=== PATIENT | male | born 1990 | race Caucasian/White ===

== ENCOUNTER 2018-04-25 10:33 | Inpatient (IN) ==
[2018-04-25] MEDS ORDERED: Naloxone 0.4 MG/ML INJ IVP PRN (14:25)
--- NOTE | 2018-04-25 14:25 | Internal Med History&Physical ---
Date of Encounter: 04/25/18 Time of Encounter: 15:00 Internal Medicine - H&P: HPI History of present illness: Mr. Farris is a 27 year old male with no significant past medical history presented as a transfer from [place]. Patient initially presented for two day history of sharp intermittent epigastric abdominal pain. Pain high as 7/10 with some nausea. He also had difficulty tolerating foods. Yesterday vomited when trying to eat. CT abdomen/pelvis at [place] showed SBO. Patient had NG tube and transferred here for further workup. Patient currently states pain is 2/10 but feels Dilauded received on transfer is wearing off. He states he has had + Flatus today with no BM. Denies fevers/chills. Past Med Surg Social Fam HX - Past Medical History Medical history: other Additional medical history: urethra- 2002 to enlarge Psychiatric history: no psych history - Past Surgical History Additional surgical history: right knee surgery - Social History Smoking Status: Never smoker Smokeless Tobacco Status: No Alcohol use: heavy Drug use: marijuana - Family History Father Age: 53 Living Status: Still Living Hx Family Cardiac Disorders: No Hx Family Respiratory Disorders: No Hx Family Cancer: No Internal Medicine - H&P: Meds No Known Home Drugs 04/25/18 [History] Allergy/AdvReac Type Severity Reaction Status Date / Time No Known Allergies Allergy Verified 04/25/18 07:53 All Systems PM: A 10-system review of systems was performed and is negative for pertinent findings except as documented above in the HPI. - Constitutional Vitals: Temp Pulse Resp BP Pulse Ox 98.6 F 94 15 153/83 94 04/25/18 12:43 04/25/18 12:43 04/25/18 12:43 04/25/18 12:43 04/25/18 12:43 General appearance: Present: A&O X 3, no acute distress Exam: . - Head Head exam: Present: atraumatic, normocephalic - Eye Eye exam: Present: PERRL, conjuntiva pink, sclera anicteric Pupils: Present: PERRL - Neck Neck exam general surgery: Present: supple, trachea midline. Absent: lymphadenopathy - Respiratory Respiratory exam: Present: CTAB. Absent: accessory muscle use, rales, rhonchi, wheezes - Cardiovascular Cardiovascular exam: Present: RRR, +S1, +S2. Absent: diastolic murmur, gallop, rubs, systolic murmur - GI/Abdominal GI/Abdominal exam: Present: normal bowel sounds, soft, tenderness, no peritoneal signs. Absent: distended, rebound, rigid - Extremities Exam Extremities exam: Present: warm, radial pulses palpable and symmetrical. Absent: calf tenderness, cyanotic, pedal edema - Neurological Exam Neurological exam: Present: CN II-XII intact, oriented X3, no focal deficits. Absent: pronater drift, facial droop, speech deficit - Skin Skin exam: Present: dry, intact - Assessment and plan (1) Small bowel obstruction Current Visit: Yes Status: Acute Assessment and plan: NPO NG tube in place Oxy sL and IV Fentanyl for breakthrough pain. Patient describes having + flatus, no BM Give IV fluids, received 1 L NS prior to transfer Surgery consulted, recommendations appreciated (2) DVT prophylaxis Current Visit: Yes Status: Acute Assessment and plan: Lovenox SQ - Time Spent With Patient Total time spent is greater than 50% in coordination of care (as documented) at patient's floor/unit and/or counseling patient:
[2018-04-25] MEDS ORDERED: OXYCODONE Oral CONC 10 MG/0.5 ML ORAL.SYG SL PRN (14:27)
[2018-04-25] MEDS: Ondansetron 4 MG/2 ML VIAL IVP PRN (15:39)
[2018-04-25] MEDS: OXYCODONE Oral CONC 10 MG/0.5 ML ORAL.SYG SL PRN ×2 (15:39→21:34)
[2018-04-25] MEDS: 0.9 % Sodium Chloride 1,000 ML IVC SCH (15:40)
--- NOTE | 2018-04-25 15:45 | General Surgery Consult Note ---
<Zoie Oliver - Last Filed: 04/25/18 15:43> Date of Encounter: 04/25/18 Time of Encounter: 15:43 Assessment and Plan (1) Abdominal pain Current Visit: Yes Status: Acute CT of the abdomen and pelvis notes low contagious significantly dilated loops of bowel primarily involving the jejunum measuring up to 5 cm, mild to distal ileal small bowel loops are normal caliber. Transition appears in the mid abdomen. Mild amount of free fluid in the pelvis and mild Per--hepatic ascites, likely reactive. He has never had any abdominal surgeries. Low low suspicion of small bowel obstruction given that he is passing gas at this time. We will continue to follow along with you, however no acute surgical intervention as indicated at this time Continue NG tube low intermittent wall suction may have ice chips for comfort Chloraseptic spray for sore throat we will check a KUB now serial abdominal exams repeat a.m. labs Qualifiers: Abdominal location: generalized Qualified Code(s): R10.84 - Generalized abdominal pain History of Present Illness Consult date: 04/25/18 (Dr. Hamilton) Reason for consult: abdominal pain Requesting physician: Wilton Calvillo II History of present illness: There is a 27-year-old male who is in good health who presented on 04/25/2018 following a two-day course of abdominal discomfort and intractable vomiting. He reports a history of difficulty burping "I can't really burp so if I feel gassy are fully just make myself throw up." He states that he began having this nausea and fullness in his belly he attempted to induce vomiting but was unsuccessful. He woke up the next day the pain was still in his abdomen but he went to work and then as the day progressed his pain got significantly worse and he began having severe vomiting. He states he had thrown up at least 10 times. He reports feeling fevered and chilled but did not check his temperature, denies headache, dizziness, chest pain, shortness of breath, urinary signs or symptoms, constipation or diarrhea. He states he typically has a daily bowel movements and is last bowel movement was yesterday. He states he had not passed any flatus for approximately 30 hours but just prior to my entry into the room he began passing "a lot of gas." He endorses an appetite and like a Mountain Dew. An NG tube was [facility] at [facility]. The patient states he did not necessarily feel any improvement in his abdomen after the tube was placed but did feel somewhat better after pain medication was given. He reports his maternal grandmother has a history of ulcerative colitis/Crohn's. He has had surgery on his left knee. He denies cigarettes, alcohol, or street drugs. He works as a concrete carpenter. Past Med Surg Social Fam HX - Past Medical History Source: patient Medical history: other Additional medical history: urethra- 2002 to enlarge Psychiatric history: no psych history - Past Surgical History Surgical History: arthroscopy Additional surgical history: right knee surgery - Social History Smoking Status: Never smoker Smokeless Tobacco Status: No Alcohol use: heavy Drug use: marijuana - Family History Father Age: 53 Living Status: Still Living Hx Family Cardiac Disorders: No Hx Family Respiratory Disorders: No Hx Family Cancer: No Medications and Allergies RX: No Known Home Drugs 04/25/18 [History] Allergy/AdvReac Type Severity Reaction Status Date / Time No Known Allergies Allergy Verified 04/25/18 07:53 Review of Systems All systems PM: reviewed and no additional remarkable complaints except as stated All systems PM: The remainder of the systems were reviewed and are negative General Surgery Exam Initial Vital Signs Temp Pulse Resp BP Pulse Ox 98.6 F 94 15 153/83 94 04/25/18 12:43 04/25/18 12:43 04/25/18 12:43 04/25/18 12:43 04/25/18 12:43 VITAL SIGNS: Reviewed. See [facility] GENERAL: In no apparent distress. HEENT: Normocephalic, atraumatic, pupils are equal and reactive, extraocular motions intact, oropharynx is pink and moist, there is no neck adenopathy or JVD noted. CHEST/RESPIRATORY: The thorax is free from signs of trauma. Lung sounds: clear to auscultation, normal respiratory effort CARDIAC: Regular rate and rhythm. Normal S1 and S2, without murmurs, gallops, or rubs. VASCULAR: No Edema. 2+ peripheral pulses. ABDOMEN: soft, nontender, active bowel sounds, NG tube is secured. MUSCULOSKELETAL: Good range of motion of all major joints. Extremities without clubbing, cyanosis or edema. NEUROLOGIC EXAM: Alert and oriented x 3. Speech normal. Follows commands. PSYCHIATRIC: Mood normal. SKIN: No rash or lesions. Exam Initial Vital Signs Temp Pulse Resp BP Pulse Ox 98.6 F 94 15 153/83 94 04/25/18 12:43 04/25/18 12:43 04/25/18 12:43 04/25/18 12:43 04/25/18 12:43 Results - Labs All other labs normal. - Imaging CT scan - abdomen: report reviewed CT scan - pelvis: report reviewed Consult Discharge Plan - Plan Referrals: NONE,PCP [Primary Care Provider] - <Jackson Hamilton E - Last Filed: 04/25/18 16:00> Date of Encounter: 04/25/18 Assessment and Plan (1) Abdominal pain Current Visit: Yes Status: Acute Qualifiers: Abdominal location: generalized Qualified Code(s): R10.84 - Generalized abdominal pain Review of Systems All systems PM: The remainder of the systems were reviewed and are negative General Surgery Exam Initial Vital Signs Temp Pulse Resp BP Pulse Ox 98.6 F 94 15 153/83 94 04/25/18 12:43 04/25/18 12:43 04/25/18 12:43 04/25/18 12:43 04/25/18 12:43 Exam Initial Vital Signs Temp Pulse Resp BP Pulse Ox 98.6 F 94 15 153/83 94 04/25/18 12:43 04/25/18 12:43 04/25/18 12:43 04/25/18 12:43 04/25/18 12:43 Results - Labs All other labs normal. - Attending Attestation Agree with the above assessment. I do not appreciate any transition point of the SB.Will follow his exam.
[2018-04-25] MEDS ORDERED: Chloraseptic Spray 177 ML BOTTLE MM PRN (15:52)
[2018-04-25] MEDS ORDERED: 0.9 % Sodium Chloride 1,000 ML IVC ONE (15:56)
[2018-04-25] MEDS: Pantoprazole 40 MG VIAL IVP SCH (17:20)
[2018-04-26] MEDS: *HR* Enoxaparin 40 MG/0.4 ML SYRINGE SQ SCH (04:45)
[2018-04-26] MEDS: 0.9 % Sodium Chloride 1,000 ML IVC SCH (04:47)
[2018-04-26] MEDS: Ondansetron 4 MG/2 ML VIAL IVP PRN ×3 (04:50→18:34)
[2018-04-26] MEDS: OXYCODONE Oral CONC 10 MG/0.5 ML ORAL.SYG SL PRN ×2 (04:50→10:16)
[2018-04-26] MEDS ORDERED: *HR* Dextrose 50 % in Water (Syg) 50 ML SYRINGE IVP PRN (05:52)
[2018-04-26] MEDS ORDERED: Dextrose Gel 15 GM/37.5 ML TUBE PO ONE (05:52)
[2018-04-26 06:52] LABS: Basophils % 0.4 %; Eosinophils # 0.1 K/mcL (0.0-0.6); Eosinophils % 0.5 %; Hematocrit 43.1 % (37.5-50.1); Hemoglobin 14.5 g/dL (12.9-16.9); Immature Granulocytes % 0.3 % (0-4); Lymphocytes # 2.6 K/mcL (0.6-4.6); Lymphocytes % 25.6 %; Mean Corpuscular HGB Conc 33.6 g/dL (31.6-35.5); Mean Corpuscular Hemoglobin 32.2 pg (28.0-33.3); Mean Corpuscular Volume 95.8 fL (83.0-100.0); Mean Platelet Volume 9.8 fL (9.4-12.4); Monocytes # 0.8 K/mcL (0.0-1.3); Monocytes % 8.2 %; Neutrophils # 6.5 K/mcL (1.6-8.9); Platelet Count 257 K/mcL (140-400); Red Cell Distribution Width 12.3 % (11.5-14.5)
[2018-04-26 06:58] LABS: BUN/Creatinine Ratio 13 (6-26); Blood Urea Nitrogen 12 mg/dL (6-20); Calcium 8.9 mg/dL (8.6-10.3); Carbon Dioxide 27 mEq/L (23-29); Chloride 106 mEq/L (98-107); Glucose 87 mg/dL (70-105); Osmolality,Calculated 289 (280-300); Potassium 3.7 mEq/L (3.5-5.1); Sodium 140 mEq/L (136-145); eGFR For Non-African Americans > 60 (> 60)
[2018-04-26] MEDS: Pantoprazole 40 MG VIAL IVP SCH (08:15)
[2018-04-26] MEDS ORDERED: *HR* LORazepam 2 MG/ML VIAL IVP ONE (12:18)
--- NOTE | 2018-04-26 18:16 | General Surgery Progress Note ---
Date of Encounter: 04/26/18 Time of Encounter: 08:02 - Assessment and Plan (1) Abdominal pain Current Visit: Yes Status: Acute Likely ileus secondary to gastroenteritis. Patient and his girlfriend were both sick just days prior to the onset of abdominal pain and vomtiing. Less likely SBO d/t patient having no history of abdominal surgery, passing gas, bowel sounds present, no mass visualized on CT. Patient states that pain and bloating have improved since getting NGT Pain is now localized to the epigastric region Admits to flatus, but no bowel movements CT 04/25 - dilated loops of bowel primarily involving the jejunum, approx up to 5cm. Transition in mid abdomen. No acute surgical intervention indicated at this time. Will continue to follow. Continue discomfort and supportive care Continue NPO with ice chips Continue GI/DVT prophylaxis Continue NGT until patient has a BM, if no improvement will order SBFT Qualifiers: Abdominal location: epigastric Qualified Code(s): R10.13 - Epigastric pain (2) DVT prophylaxis Current Visit: Yes Status: Acute Subjective Patient reports: feels better, flatus, no bowel movement, afebrile Objective Vital Signs - Last 8 Hours Temp Pulse Resp BP Pulse Ox 04/26/18 14:54 97.7 F 75 16 126/73 96 04/26/18 11:34 97.6 F 73 16 121/72 96 Intake and Output 04/26/18 04/26/18 04/26/18 07:59 15:59 23:59 Intake Total 1000 / 1000 0 / 0 0 / 0 Output Total 1650 / 1650 1225 / 1225 Balance -650 / -650 -1225 / -1225 0 / 0 Intake: IV Fluids 1000 / 1000 0.9 % Sodium Chloride 1,000 ML 1000 / 1000 @ 150 mls/hr IVC .[id number] GARETH Rx #:[id number] Oral 0 / 0 0 / 0 Output: Urine 250 / 250 0 / 0 Gastric Drainage 1400 / 1400 1225 / 1225 Right Nare 1100 / 1100 Other: Meal Breakfast NPO DINNER NPO Percent of Meal Consumed 0% 0% Weight 73.7 kg Blood Glucose* 72 73 84 Patient Weight 04/26/18 23:59 Weight 73.7 kg - General physical appearance well developed, well nourished, no distress, moderate pain - Eyes normal ocular movement - ENT normal mucosa, atraumatic, normocephalic - Neck Neck exam: no masses, trachea midline - Respiratory normal expansion, normal respiratory effort, clear to auscultation - Cardiovascular Cardiovascular exam: Present: RRR, no murmurs/rubs/gallops - Abdomen Abdomen: Present: bowel sounds present, soft. Absent: distended, guarding, rebound Abdominal Tenderness: epigastic Hernia: none - Integumentary no rash, no growths - Psychiatric oriented to time, oriented to person, oriented to place, speech is normal - Labs 04/26/18 05:14 04/26/18 05:14 Diabetes panel 04/26/18 Range/Units 05:14 Sodium 140 (136-145) mEq/L Potassium 3.7 (3.5-5.1) mEq/L Chloride 106 (98-107) mEq/L Carbon Dioxide 27 (23-29) mEq/L BUN 12 (6-20) mg/dL Creatinine 0.96 (0.70-1.30) mg/dL Glucose 87 (70-105) mg/dL Calcium 8.9 (8.6-10.3) mg/dL Calcium panel 04/26/18 Range/Units 05:14 Calcium 8.9 (8.6-10.3) mg/dL Pituitary panel 04/26/18 Range/Units 05:14 Sodium 140 (136-145) mEq/L Potassium 3.7 (3.5-5.1) mEq/L Chloride 106 (98-107) mEq/L Carbon Dioxide 27 (23-29) mEq/L BUN 12 (6-20) mg/dL Creatinine 0.96 (0.70-1.30) mg/dL Glucose 87 (70-105) mg/dL Calcium 8.9 (8.6-10.3) mg/dL Adrenal panel 04/26/18 Range/Units 05:14 Sodium 140 (136-145) mEq/L Potassium 3.7 (3.5-5.1) mEq/L Chloride 106 (98-107) mEq/L Carbon Dioxide 27 (23-29) mEq/L BUN 12 (6-20) mg/dL Creatinine 0.96 (0.70-1.30) mg/dL Glucose 87 (70-105) mg/dL Calcium 8.9 (8.6-10.3) mg/dL Consult Discharge Plan - Plan Referrals: NONE,PCP [Primary Care Provider] -
--- NOTE | 2018-04-26 21:15 | Internal Med Progress Note ---
Hospitalist Progress Note - Encounter Date of Encounter: 04/26/18 Time of Encounter: 19:00 - Subjective Interval History: SUBJECTIVE: The patient feels better. His abdominal distention subsided. Denies nausea and vomiting; he does have NG tube inserted. He does pass gas at times. He has not had any bowel movements since admitting him to the hospital. OBJECTIVE: Skin: Free of rash and discoloration. ENMT: Oral/pharyngeal mucosa is normal in appearance. Eyes: Sclera is white. There is no discharge from eyes. Respiratory: Normal breath sounds; no crackles or wheezes. CV: Heart is regular; no gallop or murmur. GI: There is mild tenderness in epigastrium. There is no palpable mass or visceromegaly. Neuro: There is no focal deficits. ADDITIONAL DATA: CBC is normal (WBC of 10.1 thousand). BMP shows potassium of 3.7 and creatinine of 0.96. KUB is ordered for tomorrow. ASSESSMENT AND PLAN: Most likely ileus rather than small bowel obstruction. See notes from general surgery. Before developing abdominal distention the patient was fighting about of acute gastroenteritis. We are waiting for him to move his bowels. To continue NG tube and ice chips. KUB in the morning. DISPOSITION: He has a good chance to be discharged sometime tomorrow p.m. - Exam Vitals: Temp Pulse Resp BP Pulse Ox 98.8 F 67 15 113/66 94 04/26/18 18:20 04/26/18 18:20 04/26/18 18:20 04/26/18 18:20 04/26/18 18:20 Exam: xx - Assessment and Plan (1) Ileus Current Visit: Yes Status: Acute (2) Acute gastroenteritis Current Visit: Yes Status: Acute - Time Spent with Patient Total time spent is greater than 50% in coordination of care (as documented) at patient's floor/unit and/or counseling patient: 25 - 35 minutes Plan of Care Discussed with: patient Internal Medicine: Result - Labs CBC & Chem 7: 04/26/18 05:14 04/26/18 05:14 Labs: Short CBC 04/26/18 Range/Units 05:14 WBC 10.1 (4.3-11.1) K/mcL Hgb 14.5 D (12.9-16.9) g/dL Hct 43.1 (37.5-50.1) % Plt Count 257 (140-400) K/mcL Neutrophils # 6.5 (1.6-8.9) K/mcL BMP 04/26/18 05:14 Sodium 140 Potassium 3.7 Chloride 106 Carbon Dioxide 27 BUN 12 Creatinine 0.96 Glucose 87 Calcium 8.9 Consult Discharge Plan - Plan Referrals: NONE,PCP [Primary Care Provider] -
[2018-04-27 04:31] LABS: Basophils % 0.3 %; Eosinophils # 0.1 K/mcL (0.0-0.6); Hematocrit 43.2 % (37.5-50.1); Hemoglobin 14.6 g/dL (12.9-16.9); Immature Granulocytes % 0.2 % (0-4); Lymphocytes # 2.6 K/mcL (0.6-4.6); Lymphocytes % 28.4 %; Mean Corpuscular HGB Conc 33.8 g/dL (31.6-35.5); Mean Corpuscular Hemoglobin 32.2 pg (28.0-33.3); Mean Corpuscular Volume 95.2 fL (83.0-100.0); Mean Platelet Volume 9.4 fL (9.4-12.4); Monocytes # 0.9 K/mcL (0.0-1.3); Monocytes % 9.1 %; Neutrophils # 5.7 K/mcL (1.6-8.9); Platelet Count 238 K/mcL (140-400); Red Blood Count 4.54 M/mcL (4.19-5.50); Red Cell Distribution Width 11.9 % (11.5-14.5)
[2018-04-27 04:48] LABS: BUN/Creatinine Ratio 10 (6-26); Blood Urea Nitrogen 9 mg/dL (6-20); Calcium 9.3 mg/dL (8.6-10.3); Carbon Dioxide 29 mEq/L (23-29); Chloride 104 mEq/L (98-107); Glucose 97 mg/dL (70-105); Osmolality,Calculated 287 (280-300); Potassium 3.9 mEq/L (3.5-5.1); Sodium 139 mEq/L (136-145); eGFR For Non-African Americans > 60 (> 60)
[2018-04-27] MEDS: *HR* Enoxaparin 40 MG/0.4 ML SYRINGE SQ SCH (05:04)
[2018-04-27] MEDS: Ondansetron 4 MG/2 ML VIAL IVP PRN (05:09)
[2018-04-27 07:26] VITALS: BP 117/70
[2018-04-27] MEDS: Pantoprazole 40 MG VIAL IVP SCH (09:10)
--- NOTE | 2018-04-27 10:30 | Discharge Summary ---
Date of Encounter: 04/27/18 Time of Encounter: 10:28 - Discharge Diagnosis (1) Ileus Priority: Primary Status: Acute (2) Acute gastroenteritis Priority: Primary Status: Acute Hospital course: HOSPITAL COURSE: The patient is a 27-year-old male. He is a transfer from [place]. It was about 5 days ago when he started having symptoms of acute gastroenteritis. His had similar symptoms. After 2 days he felt like the disease was nearly gone. Then he developed epigastric pain with some nausea and progressing abdominal distention. He was found to have possible small bowel obstruction. NG tube was inserted. He was kept nothing by mouth for 2 days. Then, all his symptoms subsided. NG tube was removed. The patient ate breakfast on the day of discharge. CONDITION AT DISCHARGE: He feels good. Abdominal pain subsided. Denies nausea and vomiting. Denies chest pain and difficulty breathing. Skin: Free of rash and discoloration. Respiratory: Normal breath sounds with no crackles and wheezes bilaterally. CV: Heart is regular with no gallop or murmur. GI: Abdomen is flat and soft with no palpable mass or visceromegaly. Neuro exam: There is no focal deficits. Normal speech, swallowing and gait. SEE DISCHARGE ORDERS/MEDICATIONS.. Retrospectively, we feel that this patient experienced ileus triggered by acute gastroenteritis. See notes from general surgery. Discharge discussed with: patient, family - Time Spent with Patient Total time spent providing and/or coordinating discharge services: Greater than 30 minutes (35 minutes..) - Discharge Medications Home Medications: No Known Home Drugs 04/25/18 [History] Allergies/Adverse Reactions: Allergy/AdvReac Type Severity Reaction Status Date / Time No Known Allergies Allergy Verified 04/25/18 07:53 Date of admission: 04/26/18 08:52 Primary care physician: PCP NONE Discharging clinician: Fernandez Hebert Anticipated date of discharge: 04/27/18 - Constitutional Vitals: Temp Pulse Resp BP Pulse Ox 98.4 F 57 15 117/70 97 04/27/18 07:21 04/27/18 07:21 04/27/18 07:21 04/27/18 07:21 04/27/18 08:04 General appearance: Present: A&O X 3, no acute distress, answers questions appropriately Exam: xx - Patient Status Disposition: Home, Self-Care Condition: Good Functional capacity at discharge: independent ambulation Overall status at discharge: patient is back to baseline - Discharge Instructions Instructions: Gastroenteritis (DC), Ileus (DC) Follow Up With: NONE,PCP [Primary Care Provider] - (Berta "find physician" card given to patient to call after the weekend and instructed to follow up) Additional Instructions: Follow-up appointments: If there is not an appointment listed below, please call your physician and schedule a follow-up appointment. If you have congestive heart failure and your symptoms return, make an appointment with your physician. Medication List: Carry an up to date list of medications you are taking at all time. We have given you an updated medication list including any new medications that you have been prescribed. Please provide that list to your primary provider Symptoms: If your condition changes or you experience any of the following symptoms, notify your physician immediately: Unusual or worsening pain, fever, persistent nausea and vomiting, bleeding, increase in swelling (especially in your legs), sudden weight gain, extreme dizziness, chest pain, increased drainage or redness from a wound or incision. Go to the emergency department if you experience a problem with breathing. Weights: If you have a history of swelling or shortness of breath, weigh yourself daily and notify your physician if you have a weight gain of two or more pounds in one day or 5 or more pounds in a week. If you experience any of the warning signs for stroke: Sudden numbness or weakness of the face, arm or leg; especially on one side of the body, sudden confusion, trouble speaking or understanding, sudden trouble seeing in one or both eyes, sudden trouble walking, dizziness, loss of balance or coordination, sudden sever headache with no cause; Call 911 or go to the emergency room. Stroke is a medical emergency. Some risk factors for stroke: Age, cigarette smoking, diabetes, excessive alcohol consumption, family history, high blood pressure, overweight, physical inactivity, prior stroke, heart attack, diagnosis of carotid artery stenosis or other artery disease. If you smoke, STOP: Smoking or tobacco use significantly increases your risk of heart and lung disease. Your chance of disease greatly increases if you continue to smoke. For more information, call the [place] tobacco quit line for smoking cessation QUIT-NOW ( ) - Diet and Activity Activity: resume usual activities as tolerated Diet: regular diet - VTE Reasons for not Prescribing Prophylaxis: Treatment not Indicated - Low risk for VTE Deep Vein Thrombosis/Pulmonary Embolism Present on Admission: No
--- NOTE | 2018-04-27 11:44 | General Surgery Progress Note ---
Date of Encounter: 04/27/18 Time of Encounter: 09:53 - Assessment and Plan (1) Abdominal pain Status: Acute Likely ileus secondary to gastroenteritis. Less likely SBO d/t patient having no history of abdominal surgery, passing gas, bowel sounds present, no mass visualized on CT. NGT removed yesterday evening. Patient has had 3 bowel movements, is passing gas, and denies nausea or vomiting. CT 04/25 - dilated loops of bowel primarily involving the jejunum, approx up to 5cm. Transition in mid abdomen. No acute surgical intervention indicated at this time. Surgery will sign off. Continue discomfort and supportive care Advanced to full liquid diet Continue GI/DVT prophylaxis Qualifiers: Abdominal location: epigastric Qualified Code(s): R10.13 - Epigastric pain Subjective Patient reports: no new complaints, feels better, flatus, bowel movement, afebrile Objective Vital Signs - Last 8 Hours Temp Pulse Resp BP Pulse Ox 04/27/18 08:04 97 04/27/18 07:21 98.4 F 57 15 117/70 97 04/27/18 05:18 98.5 F 59 15 118/70 96 Intake and Output 04/26/18 04/27/18 04/27/18 23:59 07:59 15:59 Intake Total 0 / 0 0 / 0 Output Total 250 / 250 0 / 0 Balance -250 / -250 0 / 0 Intake: Oral 0 / 0 0 / 0 Output: Urine 250 / 250 0 / 0 Other: Meal DINNER NPO Percent of Meal Consumed 0% Stool Size Moderate Moderate Stool Consistency liquid soft formed Stool Characteristics Mucoid Stool Color Yellow # Voids 1 # Bowel Movements 3 Weight 73.9 kg Blood Glucose* 101 124 Patient Weight 04/27/18 23:59 Weight 73.9 kg - General physical appearance well developed, well nourished, no distress - Respiratory normal expansion, normal respiratory effort - Cardiovascular Cardiovascular exam: Present: RRR, no murmurs/rubs/gallops - Abdomen Abdomen: Present: bowel sounds present, soft, non tender. Absent: distended, guarding, rebound - Integumentary no rash - Psychiatric speech is normal - Labs 04/27/18 03:39 04/27/18 03:39 Diabetes panel 04/27/18 Range/Units 03:39 Sodium 139 (136-145) mEq/L Potassium 3.9 (3.5-5.1) mEq/L Chloride 104 (98-107) mEq/L Carbon Dioxide 29 (23-29) mEq/L BUN 9 (6-20) mg/dL Creatinine 0.94 (0.70-1.30) mg/dL Glucose 97 (70-105) mg/dL Calcium 9.3 (8.6-10.3) mg/dL Calcium panel 04/27/18 Range/Units 03:39 Calcium 9.3 (8.6-10.3) mg/dL Pituitary panel 04/27/18 Range/Units 03:39 Sodium 139 (136-145) mEq/L Potassium 3.9 (3.5-5.1) mEq/L Chloride 104 (98-107) mEq/L Carbon Dioxide 29 (23-29) mEq/L BUN 9 (6-20) mg/dL Creatinine 0.94 (0.70-1.30) mg/dL Glucose 97 (70-105) mg/dL Calcium 9.3 (8.6-10.3) mg/dL Adrenal panel 04/27/18 Range/Units 03:39 Sodium 139 (136-145) mEq/L Potassium 3.9 (3.5-5.1) mEq/L Chloride 104 (98-107) mEq/L Carbon Dioxide 29 (23-29) mEq/L BUN 9 (6-20) mg/dL Creatinine 0.94 (0.70-1.30) mg/dL Glucose 97 (70-105) mg/dL Calcium 9.3 (8.6-10.3) mg/dL - VTE Reasons for not Prescribing Prophylaxis: Treatment not Indicated - Low risk for VTE Deep Vein Thrombosis/Pulmonary Embolism Present on Admission: No Consult Discharge Plan - Plan Instructions: Gastroenteritis (DC), Ileus (DC) Additional Instructions: Follow-up appointments: If there is not an appointment listed below, please call your physician and schedule a follow-up appointment. If you have congestive heart failure and your symptoms return, make an appointment with your physician. Medication List: Carry an up to date list of medications you are taking at all time. We have given you an updated medication list including any new medications that you have been prescribed. Please provide that list to your primary provider Symptoms: If your condition changes or you experience any of the following symptoms, notify your physician immediately: Unusual or worsening pain, fever, persistent nausea and vomiting, bleeding, increase in swelling (especially in your legs), sudden weight gain, extreme dizziness, chest pain, increased drainage or redness from a wound or incision. Go to the emergency department if you experience a problem with breathing. Weights: If you have a history of swelling or shortness of breath, weigh yourself daily and notify your physician if you have a weight gain of two or more pounds in one day or 5 or more pounds in a week. If you experience any of the warning signs for stroke: Sudden numbness or weakness of the face, arm or leg; especially on one side of the body, sudden confusion, trouble speaking or understanding, sudden trouble seeing in one or both eyes, sudden trouble walking, dizziness, loss of balance or coordination, sudden sever headache with no cause; Call 911 or go to the emergency room. Stroke is a medical emergency. Some risk factors for stroke: Age, cigarette smoking, diabetes, excessive alcohol consumption, family history, high blood pressure, overweight, physical inactivity, prior stroke, heart attack, diagnosis of carotid artery stenosis or other artery disease. If you smoke, STOP: Smoking or tobacco use significantly increases your risk of heart and lung disease. Your chance of disease greatly increases if you continue to smoke. For more information, call the [place] tobacco quit line for smoking cessation QUIT-NOW ( ) Referrals: NONE,PCP [Primary Care Provider] - (Berta "find physician" card given to patient to call after the weekend and instructed to follow up)
== END 2018-04-27 11:27 | disposition home or self-care (01) | DRG 390 ==
LOC: 3ANU → SUATTDRO 12:33
PROVIDERS: ADMIT Student in an Organized Health Care Education/Training Program; ATTEND Internal Medicine